=== PATIENT | female | born 1995 | race American Indian/Alaskan Native ===

== ENCOUNTER 2019-01-29 17:16 | Emergency (ER) | payer OTHER ==
--- NOTE | 2019-01-29 17:24 | Emergency Department Report ---
Blank Doc - Documentation Documentation: 23-year-old female that presents with heavy vaginal bleeding after miscarriage. This initial assessment/diagnostic orders/clinical plan/treatment(s) is/are subject to change based on patient's health status, clinical progression and re- assessment by fellow clinical providers in the ED. Further treatment and workup at subsequent clinical providers discretion. Patient/guardians urged not to elope from the ED as their condition may be serious if not clinically assessed and managed. Initial orders include: 1- Patient sent to [facility] for further evaluation and treatment 2- UA 3- labs 4- US pelvic
[2019-01-29 17:25] VITALS: BP 110/74
[2019-01-29 18:22] LABS: Basophils % (Auto) 0.5 % (0.0-1.8); Eosinophils # (Auto) 0.1 K/mm3 (0.0-0.4); Eosinophils % (Auto) 2.6 % (0.0-4.3); Hematocrit 35.2 % (30.3-42.9); Hemoglobin 11.6 gm/dl (10.1-14.3); Lymphocytes # (Auto) 1.7 K/mm3 (1.2-5.4); Lymphocytes % (Auto) 31.8 % (13.4-35.0); Mean Corpuscular HGB Conc 33 % (30-34); Mean Corpuscular Volume 84 fl (79-97); Monocytes # (Auto) 0.4 K/mm3 (0.0-0.8); Monocytes % (Auto) 7.3 % (0.0-7.3); Platelet Count 157 K/mm3 (140-440); Red Blood Count 4.19 M/mm3 (3.65-5.03); Red Cell Distribution Width 15.4 % (13.2-15.2)
--- NOTE | 2019-01-29 19:31 | Ultrasound Report ---
ULTRASOUND PELVIS INDICATION / CLINICAL INFORMATION: vaginal bleeding r/o POC. TECHNIQUE: Transabdominal. Transvaginal Duplex Color Doppler used: Yes. COMPARISON: None available FINDINGS: UTERUS: Present. - Appearance (if present): No significant abnormality. - Size in cm (if present): 8.0 x 4.2 x 4.9 cm. - Endometrial Complex (if present): Endometrial complex is heterogeneous and prominently thickened. E ndometrial thickness is 1.7 cm. Color Doppler demonstrates increased vascularity in the region of the endometrial thickening within the lower uterine segment. There is focal masslike entity within the e ndometrium at the level of the lower uterine segment as well. This masslike area measures approximate ly 1.2 cm and could represent a small amount of retained products of conception. . Thickness in cm (if measured) = 1.7 cm - - Additional findings: None. RIGHT ADNEXA: There is a round hypoechoic mass within the right ovary containing numerous internal ec hoes. The appearance is most suggestive of a hemorrhagic cyst. Measurements are 3.8 x 3.1 x 3.6 cm. N ormal color Doppler blood flow. LEFT ADNEXA: No significant ovarian cyst or mass. Normal color Doppler blood flow. URINARY BLADDER: No significant abnormality. FREE FLUID: Trace. ADDITIONAL FINDINGS: None. IMPRESSION: 1. Abnormal appearance of the endometrium. The endometrial complex is abnormally thickened measuring 17 mm with slightly increased vascularity and suggestion of possible mass within the endometrium of t he lower uterine segment. This is concerning for the possibility of retained products of conception a nd clinical correlation is recommended. 2. 3.8 cm hypoechoic complex mass within the right ovary. The overall appearance is most suggestive o f a hemorrhagic cyst. Signer Name: Jaja Sullivan MD Signed: 01/29/2019 7:26 PM Workstation Name: [id number]
--- NOTE | 2019-01-29 19:31 | Ultrasound Report ---
Please see separately dictated pelvic ultrasound report for combined report including transabdominal and transvaginal exams. Signer Name: Jaja Sullivan MD Signed: 01/29/2019 7:27 PM Workstation Name: [id number]
[2019-01-29] MEDS ORDERED: KETOROLAC 60 MG/2 ML INJ IM ONE (20:53)
[2019-01-29] MEDS ORDERED: METHYLERGONOVINE 0.2 MG TABLET PO ONE (21:04)
--- NOTE | 2019-01-29 21:42 | Emergency Department Report ---
ED Female HPI - General Chief complaint: Abdominal Pain Stated complaint: HEAVY BLEEDING FROM Time Seen by Provider: 01/29/19 17:23 Source: patient Mode of arrival: Ambulatory Limitations: No Limitations - History of Present Illness Initial comments: 23-year-old female with a past medical history of ectopic requiring surgical movement of fallopian tube presents with history of 4 (2 abortions, one miscarriage, one ectopic, and no living pregnancies children) with complaints of vaginal bleeding and pain. Patient received an elective 12/30. She has had mild bleeding since procedure. Today it where she has significant vaginal bleeding and suprapubic cramping rated 9/10 in intensity. Since arrival to the hospital her bleeding has decreased. She complains of 8/10 pain does not appear to be uncomfortable. She does not have a HEAD PACKAGER doctor. - Related Data Previous Rx's Medication Instructions Recorded Last Taken Type Ibuprofen [Motrin] 600 mg PO Q8H PRN #30 tablet 01/29/19 Unknown Rx Methylergonovine [Methergine] 0.2 mg PO Q8HR #2 tablet 01/29/19 Unknown Rx traMADol [Ultram 50 MG tab] 50 mg PO Q6HR PRN #15 tablet 01/29/19 Unknown Rx Allergies Allergy/AdvReac Type Severity Reaction Status Date / Time No Known Allergies Allergy Unverified 06/25/15 13:47 ED Review of Systems ROS: Stated complaint: HEAVY BLEEDING FROM Other details as noted in HPI Comment: All other systems reviewed and negative ED Past Medical Hx - Surgical History Additional Surgical History: falliopian tube removal - Social History Smoking Status: Never Smoker Substance Use Type: Alcohol - Medications Home Medications: Home Medications Medication Instructions Recorded Confirmed Last Taken Type Ibuprofen [Motrin] 600 mg PO Q8H PRN #30 tablet 01/29/19 Unknown Rx Methylergonovine [Methergine] 0.2 mg PO Q8HR #2 tablet 01/29/19 Unknown Rx traMADol [Ultram 50 MG tab] 50 mg PO Q6HR PRN #15 tablet 01/29/19 Unknown Rx ED Physical Exam - General Limitations: No Limitations - Other Other exam information: Gen.: No acute distress Head: Atraumatic Eyes: Normal appearance, pink conjunctiva ENT: Moist mucous membranes Neck: Normal appearance, no posterior midline tenderness, no meningismus Chest: Clear to auscultation bilaterally Cardiovascular: Regular rate and rhythm Abdomen: Normal appearance, soft, mild suprapubic tenderness, no rebound or guarding, normal bowel sounds Back: Normal appearance, nontender Extremity: Full range of motion, normal appearance Neuro: Alert and oriented 3, clear speech, no focal motor or sensory deficit Psychiatric: Appropriate Skin: No rash ED Course Vital Signs 01/29/19 17:23 Temperature 98.1 F Pulse Rate 71 Respiratory 18 Rate Blood Pressure 110/74 [Left] O2 Sat by Pulse 100 Oximetry - Consultations Consultation #1: 01/29/19 21:[address] Copeland on-call HEAD PACKAGER doctor. Recommended Methergine 0.2 mg every 8 hours 3 doses and follow-up in the office. ED Medical Decision Making - Lab Data Result diagrams: 01/29/19 17:42 Lab Results 01/29/19 01/29/19 01/29/19 Range/Units 17:42 17:42 17:48 WBC 5.3 (4.5-11.0) K/mm3 RBC 4.19 (3.65-5.03) M/mm3 Hgb 11.6 (10.1-14.3) gm/dl Hct 35.2 (30.3-42.9) % MCV 84 (79-97) fl MCH 28 (28-32) pg MCHC 33 (30-34) % RDW 15.4 H (13.2-15.2) % Plt Count 157 (140-440) K/mm3 Lymph % (Auto) 31.8 (13.4-35.0) % Mckenzie % (Auto) 7.3 (0.0-7.3) % Eos % (Auto) 2.6 (0.0-4.3) % Baso % (Auto) 0.5 (0.0-1.8) % Lymph # 1.7 (1.2-5.4) K/mm3 Mckenzie # 0.4 (0.0-0.8) K/mm3 Eos # 0.1 (0.0-0.4) K/mm3 Baso # 0.0 (0.0-0.1) K/mm3 Seg Neutrophils % 57.8 (40.0-70.0) % Seg Neutrophils # 3.1 (1.8-7.7) K/mm3 HCG, Quant 96.09 H (0-4) mIU/mL Blood Type O POSITIVE Antibody Screen Negative - Radiology Data Radiology results: report reviewed ULTRASOUND PELVIS INDICATION / CLINICAL INFORMATION: vaginal bleeding r/o POC. TECHNIQUE: Transabdominal. Transvaginal Duplex Color Doppler used: Yes. COMPARISON: None available FINDINGS: UTERUS: Present. - Appearance (if present): No significant abnormality. - Size in cm (if present): 8.0 x 4.2 x 4.9 cm. - Endometrial Complex (if present): Endometrial complex is heterogeneous and prominently thickened. Endometrial thickness is 1.7 cm. Color Doppler demonstrates increased vascularity in the region of the endometrial thickening within the lower uterine segment. There is focal masslike entity within the endometrium at the level of the lower uterine segment as well. This masslike area measures approximately 1.2 cm and could represent a small amount of retained products of conception. . Thickness in cm (if measured) = 1.7 cm - - Additional findings: None. RIGHT ADNEXA: There is a round hypoechoic mass within the right ovary containing numerous internal echoes. The appearance is most suggestive of a hemorrhagic cyst. Measurements are 3.8 x 3.1 x 3.6 cm. Normal color Doppler blood flow. LEFT ADNEXA: No significant ovarian cyst or mass. Normal color Doppler blood flow. URINARY BLADDER: No significant abnormality. FREE FLUID: Trace. ADDITIONAL FINDINGS: None. IMPRESSION: 1. Abnormal appearance of the endometrium. The endometrial complex is abnormally thickened measuring 17 mm with slightly increased vascularity and suggestion of possible mass within the endometrium of the lower uterine segment. This is concerning for the possibility of retained products of conception and clinical correlation is recommended. 2. 3.8 cm hypoechoic complex mass within the right ovary. The overall appearance is most suggestive of a hemorrhagic cyst. - Medical Decision Making Patient has an ultrasound suggestive of retained products and a hemorrhagic cyst. Case discussed with Dr. Copeland. Patient provided first dose of Methergine in the ED and will be prescribed as suggested by HEAD PACKAGER. Outpatient follow-up advised. H&H is normal, no signs of hypotension or tachycardia, patient is O+ and does not require Bogen. - Differential Diagnosis ectopic, retained products, anemia, menorrhagia Critical Care Time: No Critical care attestation.: If time is entered above; I have spent that time in minutes in the direct care of this critically ill patient, excluding procedure time. ED Disposition Clinical Impression: Retained products of conception, Hemorrhagic cyst of right ovary Disposition: [id number] TO HOME OR SELFCARE Is pt being admited?: No Does the pt Need Aspirin: No Condition: Stable Instructions: Ovarian Cyst (ED), Dysfunctional Uterine Bleeding (ED) Additional Instructions: Take the medication as prescribed. Follow-up with your doctor or with the doctor/clinic provided. Return if symptoms worsen as indicated by your discharge instructions. Your ultrasound suggest that she may have some retained products of conception. Take the Methergine as prescribed and follow up with the HEAD PACKAGER doctor within 2 days. Prescriptions: Methylergonovine [Methergine] 0.2 mg PO Q8HR #2 tablet Ibuprofen [Motrin] 600 mg PO Q8H PRN #30 tablet PRN Reason: Pain traMADol [Ultram 50 MG tab] 50 mg PO Q6HR PRN #15 tablet PRN Reason: Pain Referrals: FAMILIA COPELAND MD [Staff Physician] - 2-3 Days (follow up with the barrel tester and drainer doctor in 2 days.) Time of Disposition: 22:45
== END 2019-01-29 22:51 | disposition home or self-care (01) ==
LOC: ED 17:16
DX: O73.1 Retained portions of placenta and membranes, without hemorrhage (principal); Z79.899 Other long term (current) drug therapy; Z3A.00 Weeks of gestation of pregnancy not specified
CPT/HCPCS: 36415; 76830; 76856; 84702; 85025; 86850; 86900; 86901; 96372; 99284; J1885

== ENCOUNTER 2019-08-18 14:22 | Emergency (ER) | payer OTHER ==
--- NOTE | 2019-08-18 15:40 | Emergency Department Report ---
<SINCERE GARCIA - Last Filed: 08/18/19 19:21> ED Abdominal Pain HPI - General Chief Complaint: Abdominal Pain Stated Complaint: ABD PAIN Time Seen by Provider: 08/18/19 14:56 Source: patient Mode of arrival: Ambulatory Limitations: No Limitations - History of Present Illness Initial Comments: 23-year-old -[place] female presents to the emergency room complaining of abdominal pain located in her mid to lower abdomen. Patient states that it is achy intermittent and it comes in waves and then able to get to stabbing. Patient denies any vomiting admits to nausea. Patient states that it started about 11 PM last night. Patient said about 10 AM today she started having nausea. Patient denies any fever chills shortness of breath cough. Patient reports she took acetaminophen 500 mg x 2 tablets earlier today. Patient is 2 para 0 last menstrual period was 08/11/2019 denies any vaginal bleeding or vaginal discharge MD Complaint: abdominal pain Severity scale (0 -10): 10 - Related Data Previous Rx's Medication Instructions Recorded Last Taken Type Ibuprofen [Motrin] 600 mg PO Q8H PRN #30 tablet 01/29/19 Unknown Rx Methylergonovine [Methergine] 0.2 mg PO Q8HR #2 tablet 01/29/19 Unknown Rx traMADoL [Ultram 50 MG tab] 50 mg PO Q6HR PRN #15 tablet 01/29/19 Unknown Rx Ibuprofen [Motrin 400 MG tab] 400 mg PO Q8H PRN #12 tablet 08/18/19 Unknown Rx Ondansetron [Zofran Odt] 4 mg PO Q8HR PRN #10 tab.rapdis 08/18/19 Unknown Rx traMADoL [Ultram 50 MG tab] 50 mg PO Q6HR PRN #7 tablet 08/18/19 Unknown Rx Allergies Allergy/AdvReac Type Severity Reaction Status Date / Time No Known Allergies Allergy Verified 08/18/19 14:26 ED Past Medical Hx - Past Medical History Previous Medical History?: No - Surgical History Additional Surgical History: falliopian tube removal - Social History Smoking Status: Never Smoker Substance Use Type: None - Medications Home Medications: Home Medications Medication Instructions Recorded Confirmed Last Taken Type Ibuprofen [Motrin] 600 mg PO Q8H PRN #30 tablet 01/29/19 Unknown Rx Methylergonovine [Methergine] 0.2 mg PO Q8HR #2 tablet 01/29/19 Unknown Rx traMADoL [Ultram 50 MG tab] 50 mg PO Q6HR PRN #15 tablet 01/29/19 Unknown Rx Ibuprofen [Motrin 400 MG tab] 400 mg PO Q8H PRN #12 tablet 08/18/19 Unknown Rx Ondansetron [Zofran Odt] 4 mg PO Q8HR PRN #10 tab.rapdis 08/18/19 Unknown Rx traMADoL [Ultram 50 MG tab] 50 mg PO Q6HR PRN #7 tablet 08/18/19 Unknown Rx ED Physical Exam - General Limitations: No Limitations ED Medical Decision Making - Lab Data Result diagrams: 08/18/19 17:16 08/18/19 17:16 - Medical Decision Making 23-year-old -[place] female presents to the emergency room complaining of abdominal pain located in her mid to lower abdomen. Patient states that it is achy intermittent and it comes in waves and then able to get to stabbing. Patient denies any vomiting admits to nausea. Patient states that it started about 11 PM last night. Patient said about 10 AM today she started having nausea. Patient denies any fever chills shortness of breath cough. Patient reports she took acetaminophen 500 mg x 2 tablets earlier today. Patient is 2 para 0 last menstrual period was 08/11/2019 denies any vaginal bleeding or vaginal discharge UA urine hCG pending ED Disposition Clinical Impression: Nausea, Enteritis Abdominal pain Qualifiers: Abdominal location: lower abdomen, unspecified Qualified Code(s): R10.30 - Lower abdominal pain, unspecified Ovarian cyst Qualifiers: Laterality: bilateral Qualified Code(s): N83.201 - Unspecified ovarian cyst, right side Disposition: TO HOME OR SELFCARE Condition: Stable Instructions: Ovarian Cyst (ED), Abdominal Pain (ED) Additional Instructions: Please take medication as prescribed as needed. Increase your fluid intake over the next several days. Eat a bland diet. Avoid anything sugary or greasy. Follow-up with a primary care doctor. Follow-up with a GI doctor. Follow-up with an MACHINE RECORDS UNITS SUPERVISOR. Return to emergency room immediately for any new or worsening symptoms including but not limited to worsening abdominal pain, fever, unable to tolerate by mouth intake, etc. Prescriptions: Ibuprofen [Motrin 400 MG tab] 400 mg PO Q8H PRN #12 tablet PRN Reason: Pain, Moderate (4-6) traMADoL [Ultram 50 MG tab] 50 mg PO Q6HR PRN #7 tablet PRN Reason: Pain , Severe (7-10) Ondansetron [Zofran Odt] 4 mg PO Q8HR PRN #10 tab.rapdis PRN Reason: Nausea And Vomiting Referrals: PAUL GIL MD [Staff Physician] - 3-5 Days [facility] [Provider Group] - 3-5 Days MING HODGE MD [Staff Physician] - 3-5 Days [facility] [Provider Group] - 3-5 Days Print Language: JAPANESE <JD HODGSON - Last Filed: 08/18/19 22:59> ED Review of Systems ROS: Stated complaint: ABD PAIN Other details as noted in HPI ED Course Vital Signs 08/18/19 08/18/19 08/18/19 14:29 18:35 20:52 Temperature 98.1 F Pulse Rate 66 54 L Respiratory 15 16 16 Rate Blood Pressure 116/56 101/61 [Left] O2 Sat by Pulse 98 100 Oximetry ED Medical Decision Making - Lab Data Result diagrams: 08/18/19 17:16 08/18/19 17:16 Lab Results 08/18/19 08/18/19 08/18/19 Range/Units 14:54 17:16 17:16 WBC 5.6 (4.5-11.0) K/mm3 RBC 4.60 (3.65-5.03) M/mm3 Hgb 12.8 (10.1-14.3) gm/dl Hct 38.6 (30.3-42.9) % MCV 84 (79-97) fl MCH 28 (28-32) pg MCHC 33 (30-34) % RDW 14.4 (13.2-15.2) % Plt Count 182 (140-440) K/mm3 Lymph % (Auto) 23.8 (13.4-35.0) % [place] % (Auto) 6.9 (0.0-7.3) % Eos % (Auto) 0.4 (0.0-4.3) % Baso % (Auto) 0.5 (0.0-1.8) % Lymph # 1.3 (1.2-5.4) K/mm3 Johnston # 0.4 (0.0-0.8) K/mm3 Eos # 0.0 (0.0-0.4) K/mm3 Baso # 0.0 (0.0-0.1) K/mm3 Seg Neutrophils % 68.4 (40.0-70.0) % Seg Neutrophils # 3.8 (1.8-7.7) K/mm3 Sodium 137 (137-145) mmol/L Potassium 4.4 (3.6-5.0) mmol/L Chloride 102.8 (98-107) mmol/L Carbon Dioxide 22 (22-30) mmol/L Anion Gap 17 mmol/L BUN 13 (7-17) mg/dL Creatinine 0.6 L (0.7-1.2) mg/dL Estimated GFR > 60 ml/min BUN/Creatinine Ratio 22 % Glucose 92 (65-100) mg/dL Calcium 9.3 (8.4-10.2) mg/dL Total Bilirubin 0.40 (0.1-1.2) mg/dL AST 27 (5-40) units/L ALT 15 (7-56) units/L Alkaline Phosphatase 81 (35-129) units/L Total Protein 7.8 (6.3-8.2) g/dL Albumin 4.6 (3.9-5) g/dL Albumin/Globulin Ratio 1.4 % Urine Color Yellow (Yellow) Urine Turbidity Clear (Clear) Urine pH 7.0 (5.0-7.0) Ur Specific [place] 1.029 (1.003-1.030) Urine Protein <15 mg/dl (Negative) mg/dL Urine Glucose (UA) Neg (Negative) mg/dL Urine Ketones Neg (Negative) mg/dL Urine Blood Neg (Negative) Urine Nitrite Neg (Negative) Urine Bilirubin Neg (Negative) Urine Urobilinogen < 2.0 (<2.0) mg/dL Ur Leukocyte Esterase Tr (Negative) Urine WBC (Auto) 4.0 (0.0-6.0) /HPF Urine RBC (Auto) 11.0 (0.0-6.0) /HPF U Epithel Cells (Auto) 3.0 (0-13.0) /HPF Urine Mucus 1+ /HPF Urine HCG, Qual Negative (Negative) - Radiology Data Radiology results: report reviewed CT abdomen pelvis w con INDICATION / CLINICAL INFORMATION: MAIN: Abdominal pain 100cc Omni 300 . TECHNIQUE: All CT scans at this location are performed using CT dose reduction for ALARA by means of automated exposure control. COMPARISON: None available. FINDINGS: Limited lower thoracic images are negative. ABDOMEN: The gallbladder, liver, spleen, pancreas, kidneys and adrenal glands are normal. There is no proximal small bowel dilatation. Distally there is mild segmental fluid distention of small bowel. Fecal material is demonstrated in the right colon. Pelvis: Bilateral small ovarian cysts. Small amount of free fluid is seen in the cul-de-sac. The appendix is normal. No osseous abnormalities. IMPRESSION: 1. Mild fluid distention of distal small bowel is nonspecific. 2. Small amount of free fluid in the pelvis may be related to multiple ovarian cysts or enteritis. Signer Name: Dread Uribe MD Signed: 08/18/2019 8:03 PM Workstation Name: [id number] Transcribed By: STEVE Dictated By: Dread Uribe MD Electronically Authenticated By: Dread Uribe MD Signed Date/Time: 08/18/192002 DD/ 55 TD/TT: - Medical Decision Making Vitals are normal. Labs are normal. hCG is negative. UA without evidence of UTI. Patient is feeling much better and ready to go home. CT abdomen pelvis with IV contrast 1. Mild fluid distention of distal small bowel is nonspecific. 2. Small amount of free fluid in the pelvis may be related to multiple ovarian cysts or enteritis. Discussed CT findings with patient. Patient given prescri ption for ibuprofen, tramadol, Zofran. Advised patient please take medication as prescribed as needed. Increase your fluid intake over the next several days. Eat a bland diet. Avoid anything sugary or greasy. Follow-up with a primary care doctor. Follow-up with a GI doctor. Follow-up with an MACHINE RECORDS UNITS SUPERVISOR. Return to emergency room immediately for any new or worsening symptoms including but not limited to worsening abdominal pain, fever, unable to tolerate by mouth intake, etc. Critical care attestation.: If time is entered above; I have spent that time in minutes in the direct care of this critically ill patient, excluding procedure time. ED Disposition Is pt being admited?: No Does the pt Need Aspirin: No Time of Disposition: 20:31
[2019-08-18 15:50] LABS: Bilirubin,Urine NEG (Negative); Blood,Urine NEG (Negative); Color,Urine Yellow (Yellow); Mucus,Urine 1+ /HPF; Protein,Urine <15 mg/dL mg/dL (Negative); Urobilinogen,Urine < 2.0 mg/dL (<2.0)
[2019-08-18 16:03] LABS: HCG Qualitative,Urine Negative (Negative)
[2019-08-18] MEDS ORDERED: IBUPROFEN 600 MG TAB PO ONE (16:59)
[2019-08-18] MEDS ORDERED: ONDANSETRON 4 MG ODT TAB PO ONE (16:59)
[2019-08-18 18:27] LABS: Basophils % (Auto) 0.5 % (0.0-1.8); Eosinophils % (Auto) 0.4 % (0.0-4.3); Hematocrit 38.6 % (30.3-42.9); Hemoglobin 12.8 gm/dl (10.1-14.3); Lymphocytes # (Auto) 1.3 K/mm3 (1.2-5.4); Lymphocytes % (Auto) 23.8 % (13.4-35.0); Mean Corpuscular HGB Conc 33 % (30-34); Mean Corpuscular Volume 84 fl (79-97); Monocytes # (Auto) 0.4 K/mm3 (0.0-0.8); Monocytes % (Auto) 6.9 % (0.0-7.3); Platelet Count 182 K/mm3 (140-440); Red Cell Distribution Width 14.4 % (13.2-15.2)
[2019-08-18] MEDS ORDERED: traMADol 50 MG TAB PO ONE (18:30)
[2019-08-18 18:52] LABS: Alanine Aminotransferase 15 units/L (7-56); Albumin 4.6 g/dL (3.9-5); BUN/Creatinine Ratio 22; Blood Urea Nitrogen 13 mg/dL (7-17); Calcium 9.3 mg/dL (8.4-10.2); Hemolysis Index 45
--- NOTE | 2019-08-18 20:07 | Cat Scan Report ---
CT abdomen pelvis w con INDICATION / CLINICAL INFORMATION: MAIN: Abdominal pain 100cc Omni 300\ . TECHNIQUE: All CT scans at this location are performed using CT dose reduction for ALARA by means of automated e xposure control. COMPARISON: None available. FINDINGS: Limited lower thoracic images are negative. ABDOMEN: The gallbladder, liver, spleen, pancreas, kidneys and adrenal glands are normal. There is no proximal small bowel dilatation. Distally there is mild segmental fluid distention of small bowel. Fecal material is demonstrated in the right colon. Pelvis: Bilateral small ovarian cysts. Small amount of free fluid is seen in the cul-de-sac. The appendix is normal. No osseous abnormalities. IMPRESSION: 1. Mild fluid distention of distal small bowel is nonspecific. 2. Small amount of free fluid in the pelvis may be related to multiple ovarian cysts or enteritis. Signer Name: Dread Uribe MD Signed: 08/18/2019 8:03 PM Workstation Name: [id number]
[2019-08-18 20:53] VITALS: BP 101/61
== END 2019-08-18 20:52 | disposition home or self-care (01) ==
LOC: ED 14:22
DX: K52.9 Noninfective gastroenteritis and colitis, unspecified (principal); R11.0 Nausea; N83.201 Unspecified ovarian cyst, right side; Z79.899 Other long term (current) drug therapy
CPT/HCPCS: 36415; 74177; 80053; 81001; 81025; 85025; 99284; Q9967; Q0162

== ENCOUNTER 2019-08-23 22:52 | Emergency (ER) | payer OTHER ==
[2019-08-24] MEDS ORDERED: ONDANSETRON 4 MG/2 ML INJ IM ONE (00:10)
[2019-08-24] MEDS ORDERED: MORPHINE 4 MG/1 ML INJ IM ONE (00:10)
--- NOTE | 2019-08-24 00:10 | Emergency Department Report ---
ED Abdominal Pain HPI - General Chief Complaint: Abdominal Pain Stated Complaint: NAUSEA,ABD PAIN PUI?: No Source: patient Mode of arrival: Ambulatory Limitations: No Limitations - History of Present Illness Initial Comments: 23-year-old -Stateless female presents back to the emergency room for worsening abdominal pain with nausea. Patient reports that she followed up with Dr. Huerta and was given doxycycline. Patient states that she has taken 3 doses of medication. Patient states that she took ibuprofen about 1.5 hours prior to arrival. Patient reports her last menstrual period was 08/11/2019. Patient reports no primary care provider. Patient states that she had vomited 1 time today and thought she may have seen blood. Patient reports she has not had a bowel movement in 2 days. Patient reports pain is worse with eating. Patient states that she had a banana this morning and that is when her pain started to back. MD Complaint: abdominal pain Onset/Timin -: days(s) Location: diffuse Radiation: none Severity scale (0 -10): 9 Quality: cramping, sharp Consistency: constant Improves With: nothing Worsens With: eating Associated Symptoms: nausea, vomiting. denies: diarrhea, fever - Related Data Previous Rx's Medication Instructions Recorded Last Taken Type Ibuprofen [Motrin] 600 mg PO Q8H PRN #30 tablet 01/29/19 Unknown Rx Methylergonovine [Methergine] 0.2 mg PO Q8HR #2 tablet 01/29/19 Unknown Rx traMADoL [Ultram 50 MG tab] 50 mg PO Q6HR PRN #15 tablet 01/29/19 Unknown Rx Ibuprofen [Motrin 400 MG tab] 400 mg PO Q8H PRN #12 tablet 08/18/19 Unknown Rx Ondansetron [Zofran ODT TAB] 4 mg PO Q8HR PRN #10 tab.rapdis 08/24/19 Unknown Rx traMADoL [Ultram 50 MG tab] 50 mg PO Q6HR PRN #12 tablet 08/24/19 Unknown Rx Allergies Allergy/AdvReac Type Severity Reaction Status Date / Time No Known Allergies Allergy Verified 08/23/19 22:58 ED Review of Systems ROS: Stated complaint: NAUSEA,ABD PAIN Other details as noted in HPI ED Past Medical Hx - Surgical History Additional Surgical History: falliopian tube removal - Social History Smoking Status: Never Smoker Substance Use Type: None - Medications Home Medications: Home Medications Medication Instructions Recorded Confirmed Last Taken Type Ibuprofen [Motrin] 600 mg PO Q8H PRN #30 tablet 01/29/19 Unknown Rx Methylergonovine [Methergine] 0.2 mg PO Q8HR #2 tablet 01/29/19 Unknown Rx traMADoL [Ultram 50 MG tab] 50 mg PO Q6HR PRN #15 tablet 01/29/19 Unknown Rx Ibuprofen [Motrin 400 MG tab] 400 mg PO Q8H PRN #12 tablet 08/18/19 Unknown Rx Ondansetron [Zofran ODT TAB] 4 mg PO Q8HR PRN #10 tab.rapdis 08/24/19 Unknown Rx traMADoL [Ultram 50 MG tab] 50 mg PO Q6HR PRN #12 tablet 08/24/19 Unknown Rx ED Physical Exam - General Limitations: No Limitations General appearance: alert, in distress - Head Head exam: Present: atraumatic, normocephalic - Eye Eye exam: Present: normal appearance - ENT ENT exam: Present: mucous membranes moist - Neck Neck exam: Present: normal inspection, full ROM - Respiratory Respiratory exam: Present: normal lung sounds bilaterally. Absent: respiratory distress - Cardiovascular Cardiovascular Exam: Present: regular rate, normal rhythm. Absent: systolic murmur, diastolic murmur, rubs, gallop - GI/Abdominal GI/Abdominal exam: Present: soft, tenderness. Absent: distended - Extremities Exam Extremities exam: Present: normal inspection - Back Exam Back exam: Present: normal inspection - Neurological Exam Neurological exam: Present: alert, oriented X3, normal gait - Psychiatric Psychiatric exam: Present: normal affect, normal mood - Skin Skin exam: Present: warm, dry, intact, normal color. Absent: rash ED Course Vital Signs 08/23/19 22:56 Temperature 97.9 F Pulse Rate 67 Respiratory 18 Rate Blood Pressure 110/67 O2 Sat by Pulse 99 Oximetry ED Medical Decision Making - Medical Decision Making 23-year-old -Stateless female presents back to the emergency room for worsening abdominal pain with nausea. Patient reports that she followed up with Dr. Huerta and was given doxycycline. Patient states that she has taken 3 doses of medication. Patient states that she took ibuprofen about 1.5 hours prior to arrival. Patient reports her last menstrual period was 08/11/2019. Patient reports no primary care provider. Patient states that she had vomited 1 time today and thought she may have seen blood. Patient reports she has not had a bowel movement in 2 days. Patient reports pain is worse with eating. Patient states that she had a banana this morning and that is when her pain started to back. Patient is given Zofran and morphine for pain management. Patient be discharged home on tramadol and ibuprofen. Critical care attestation.: If time is entered above; I have spent that time in minutes in the direct care of this critically ill patient, excluding procedure time. ED Disposition Clinical Impression: Abdominal pain, Ovarian cyst, Enteritis Disposition: - TO HOME OR SELFCARE Is pt being admited?: No Does the pt Need Aspirin: No Condition: Stable Instructions: Abdominal Pain (ED) Additional Instructions: Please continue taking your medications as prescribed. Please take pain medication only as needed. Follow-up with a flight mechanic. Prescriptions: traMADoL [Ultram 50 MG tab] 50 mg PO Q6HR PRN #12 tablet PRN Reason: Pain , Severe (7-10) Ondansetron [Zofran ODT TAB] 4 mg PO Q8HR PRN #10 tab.rapdis PRN Reason: Nausea And Vomiting Referrals: PRIMARY CARE, [Primary Care Provider] - 3-5 Days MING HODGE MD [Staff Physician] - 3-5 Days BETTY HUERTA MD [Staff Physician] - 3-5 Days Forms: Work/School Release Form(ED)
[2019-08-24 01:52] VITALS: BP 112/61
== END 2019-08-24 01:53 | disposition home or self-care (01) ==
LOC: ED 22:52
DX: K52.9 Noninfective gastroenteritis and colitis, unspecified (principal); N83.209 Unspecified ovarian cyst, unspecified side; Z79.899 Other long term (current) drug therapy
CPT/HCPCS: 96372; 99282; J2270; J2405